=== PATIENT | male | born 1985 | race Caucasian/White ===

== ENCOUNTER 2016-05-04 08:24 | Emergency (ER) | payer OTHER ==
--- NOTE | 2016-05-04 08:38 | ED Physician Documentation ---
PD HPI URI - Stated complaint Stated Complaint: CHEST PX,BODY ACHES - Chief complaint Chief Complaint: General - History obtained from History obtained from: Patient - History of Present Illness Timing - onset: How many days ago (3-4) Timing duration: Days (3-4) Timing details: Gradual onset, Still present Associated symptoms: Fever, Chills, Nasal congestion, Dry cough, Other (diffuse myalgias and chills, nausea, some URI symptoms. Loose stools, but not severe diarrhea. Today also with some pleuritic chest pains anterior/sternal area.). No: Sore throat Contributing factors: No: Sick contact, Travel, Immunocompromised, COPD / asthma Worsened by: Breathing, Other (cough) Similar symptoms before: Has not had sx before Recently seen: Not recently seen Review of Systems Constitutional: reports: Chills, Myalgias, Fatigue. denies: Fever Nose: reports: Congestion Throat: denies: Sore throat Respiratory: reports: Cough GI: reports: Nausea, Diarrhea : reports: Dysuria (today). denies: Frequency Skin: denies: Rash, Lesions Neurologic: denies: Altered mental status, Headache PD PAST MEDICAL HISTORY - Past Medical History Past Medical History: No - Past Surgical History Past Surgical History: No - Present Medications Home Medications: Ambulatory Orders Medication Instructions Recorded Confirmed Dexamethasone [Decadron] 4 mg PO DAILY #5 tablet 05/04/16 Hydrocodone/Acetaminophen [[place] 1 each PO Q6H PRN #20 tablet 05/04/16 5-325 Tablet] Ondansetron Odt [Zofran] 4 mg TL Q6H PRN #15 tablet 05/04/16 Oseltamivir [Tamiflu] 75 mg PO BID #10 capsule 05/04/16 - Allergies Allergies/Adverse Reactions: Allergies Allergy/AdvReac Type Severity Reaction Status Date / Time No Known Drug Allergies Allergy Verified 05/04/16 08:34 - Social History Does the pt smoke?: No Smoking Status: Never smoker Does the pt drink ETOH?: No Does the pt have substance abuse?: No - POLST Patient has POLST: No PD ED PE NORMAL - Vitals Vital signs reviewed: Yes - General General: Alert and oriented X 3, Well developed/nourished - HEENT HEENT: Ears normal, Pharynx benign - Neck Neck: Supple, no meningeal sign, No adenopathy - Cardiac Cardiac: RRR, No murmur - Respiratory Respiratory: Clear bilaterally - Abdomen Abdomen: Soft, Non tender - Back Back: No CVA TTP - Derm Derm: Normal color, Warm and dry - Extremities Extremities: Other (no joint pains, redness, nor tenderness. Mainly tender in major muscles. ) - Neuro Neuro: Alert and oriented X 3, No motor deficit, Normal speech - Psych Psych: Normal mood, Normal affect Results - Vitals Vitals: Vital Signs - 24 hr 05/04/16 05/04/16 08:30 10:23 Temperature 35.0 C L Heart Rate 74 63 Respiratory 18 20 Rate Blood Pressure 161/109 H 145/79 H O2 Saturation 99 98 Oxygen O2 Source Room air - Labs Labs: Laboratory Tests 05/04/16 09:15 Urine Color DARK YELLOW Urine Clarity CLEAR Urine pH 6.0 Ur Specific [place] >=1.030 H Urine Protein 100 H Urine Glucose (UA) NEGATIVE Urine Ketones TRACE Urine Occult Blood TRACE-INTA Urine Nitrite NEGATIVE Urine Bilirubin NEGATIVE Urine Urobilinogen 1 (NORMAL) Ur Leukocyte Esterase NEGATIVE Urine RBC None Seen Urine WBC 0-3 Ur Squamous Epith Cells RARE Squamous Urine Crystals 26-50 Uric Acid Urine Bacteria Few Urine Mucus Marked Strands Ur Microscopic Review INDICATED Urine Culture Comments NOT INDICATED PD MEDICAL DECISION MAKING - ED course Complexity details: reviewed results (UA without infection. He does have uric acid crystals noted on UA, but no history of gout nor kidney stones. Does not have focal joint pains but diffuse myalgias. Seems viral illness. The crystals could be causing the dysuria? Will be treating with anti-inflammatories and pain meds for symptoms presuming viral illness and promote hydration, so I did not feel further workup at this time needed. I suggested to patient to see PMD and perhaps get blood test for urate.), considered differential, d/w patient Departure - Departure Disposition: 01 Home, Self Care Clinical Impression: Flu-like symptoms Chest pain Qualifiers: Chest pain type: pleurodynia Qualified Code(s): R07.81 - Pleurodynia Condition: Stable Record reviewed to determine appropriate education?: Yes Instructions: ED Chest Pain Pleurisy, ED Flu Prescriptions: Dexamethasone [Decadron] 4 mg PO DAILY #5 tablet Hydrocodone/Acetaminophen [[place] 5-325 Tablet] 1 each PO Q6H PRN #20 tablet PRN Reason: Pain Oseltamivir [Tamiflu] 75 mg PO BID #10 capsule Ondansetron Odt [Zofran] 4 mg TL Q6H PRN #15 tablet PRN Reason: Nausea / Vomiting Comments: Drink lots of fluids. Seems like a flu-type illness with some inflammation generally (joint pains, and in chest/lung lining presumedly). Decadron for inflammation from immune response. Can try antiviral to see if helps with the symptoms. Zofran for nausea and hydrocodone for pains if needed. Recheck if not better over another 3-5 days. Forms: Activity restrictions Discharge Date/Time: 05/04/16 10:43
[2016-05-04] MEDS ORDERED: ACETAMINOPHEN 500 MG TABLET PO STA (09:05)
[2016-05-04] MEDS ORDERED: ONDANSETRON ODT 4 MG TABLET TL STA (09:05)
[2016-05-04] MEDS ORDERED: DEXAMETHASONE 10 MG/ML VIAL PO STA (09:05)
[2016-05-04] MEDS ORDERED: ACETAMINOPHEN 500 MG TABLET PO ONE (09:09)
[2016-05-04] MEDS ORDERED: DEXAMETHASONE 10 MG/ML VIAL ONE (09:09)
[2016-05-04] MEDS ORDERED: CHERRY SYRUP 10 ML UDC PO ONE (09:09)
[2016-05-04] MEDS ORDERED: ONDANSETRON ODT 4 MG TABLET ONE (09:09)
[2016-05-04 09:36] LABS: BILIRUBIN,URINE NEGATIVE (NEGATIVE); UA w/ MICROSCOPIC CHARGE YES
[2016-05-04 09:44] LABS: WBC,URINE 0-3 /HPF (0-3)
[2016-05-04 09:45] LABS: UR CULTURE IF IND NOT INDICATED
[2016-05-04 10:23] VITALS: BP 145/79
== END 2016-05-04 10:43 | disposition home or self-care (01) ==
LOC: ED 08:24
DX: R07.81 Pleurodynia (principal); M79.1 Myalgia; R50.9 Fever, unspecified; R05 Cough; R09.81 Nasal congestion; R11.0 Nausea; R19.7 Diarrhea, unspecified; R30.0 Dysuria
CPT/HCPCS: 81001; 93005; 99283; 99284; A9270; Q0162; 81003; 87086

== ENCOUNTER 2020-01-05 16:37 | Outpatient (CLI) | payer OTHER | END 2020-01-05 16:38 | disposition home or self-care (01) | LOC: COV 16:37 | PROVIDERS: ATTEND Family Medicine | DX: U07.1 COVID-19 (principal) ==

== ENCOUNTER 2022-01-24 14:43 | Outpatient (CLI) | payer OTHER ==
--- NOTE | 2022-01-24 15:07 | XRAY Report ---
PROCEDURE: Ankle 3 View RT INDICATIONS: ANKLE JOINT PX TECHNIQUE: 3 weightbearing views of the ankle were acquired. COMPARISON: None FINDINGS: Bones: No fractures or dislocations. Ankle mortise is normally aligned. No suspicious bony lesions . Incidental note is made of an enthesophyte at the Achilles insertion. An accessory ossicle is se en, an os trigonum. The talar dome demonstrates an unremarkable appearance. Soft tissues: No tibiotalar joint effusion. Achilles tendon appears normal. IMPRESSION: Incidental note is made of an enthesophyte at the Achilles insertion. Reviewed by: Rao Smith MD on 01/24/2022 2:06 PM [facility] Approved by: Rao Smith MD on 01/24/2022 2:06 PM [facility] Station ID: [id number]
== END 2022-01-24 14:44 | disposition home or self-care (01) ==
LOC: DI 14:43
PROVIDERS: ATTEND Registered Nurse
DX: M25.571 Pain in right ankle and joints of right foot (principal)